=== PATIENT | female | born 1975 | race Caucasian/White ===

== ENCOUNTER 2018-03-06 01:19 | Outpatient (CLI) | payer BC, SELFPAY | END 2018-03-06 01:39 | PROVIDERS: PCP Family Medicine; Visit Provider Family Medicine | DX: R42 Dizziness and giddiness (principal) | CPT/HCPCS: 93225 ==

== ENCOUNTER 2018-03-06 07:06 | Outpatient (CLI) | payer BC, SELFPAY ==
[2018-03-06 07:41] LABS: Absolute Basophil Count 0.03 k/cumm (0.0-0.2); Absolute Eosinophil Count 0.08 k/cumm (0.0-0.7); Absolute Lymphocyte Count 1.97 k/cumm (1.2-3.4); Absolute Monocyte Count 0.43 k/cumm (0.11-0.7); Basophils % 0.6; Eosinophils % 1.6; HCT 42.8 % (36.0-46.0); HGB 14.4 g/dL (12.0-15.5); Lymphocytes % 38.6; Mean Corp. HGB Concentration 33.6 g/dL (32.0-36.0); Mean Corpuscular Hemoglobin 30.4 pg (27.0-33.0); Mean Corpuscular Volume 90.3 fL (80-95); Mean Platelet Volume 10.8 fL (8.0-11.0); Monocytes % 8.4; Neutrophils % 50.8; Platelet Count 243 x1000/uL (130-400); RBC 4.74 m/cumm (4.00-5.20); RBC Distribution Width 12.7 % (11.7-14.6); White Blood Cell Count 5.11 k/cumm (4.4-10.8)
[2018-03-06 07:48] LABS: Hemoglobin A1C 5.4 % (4.5-6.2)
[2018-03-06 08:54] LABS: HCG Qual (Urine) Negative
[2018-03-06 09:13] LABS: ALT 22 U/L (12-78); AST 18 U/L (15-37); Albumin 3.8 g/dL (3.4-5.0); Alkaline Phosphatase 71 U/L (46-116); Anion Gap 7.9 mmol/L (3-11); BUN 11 mg/dL (7-18); Bilirubin, Total 0.7 mg/dL (0.2-1.0); CO2 29.1 mmol/L (21.0-32.0); CREATININE 0.83 mg/dL (0.55-1.02); Calcium 8.7 mg/dL (8.5-10.1); Chloride 105 mmol/L (98-107); Glucose 85 mg/dL (70-100); Potassium 4.1 mmol/L (3.5-5.1); Sodium 142 mmol/L (136-145); TSH 2.81 uIU/mL (0.358-3.74); Total Protein 7.1 g/dL (6.4-8.2)
== END 2018-03-06 07:26 ==
PROVIDERS: PCP Family Medicine; Visit Provider Family Medicine
DX: R42 Dizziness and giddiness (principal); R55 Syncope and collapse; R73.09 Other abnormal glucose
CPT/HCPCS: 36415; 80053; 81025; 83036; 84443; 85025

== ENCOUNTER 2018-03-09 11:54 | Outpatient (CLI) | payer BC, SELFPAY ==
--- NOTE | 2018-03-13 10:34 | W.HOLTRPT ---
Holter Monitor Report Holter Monitor Note: Baseline heart rhythm sinus. Rare single PAC. Single burst SVT, for mean duration at 130 bpm. No atrial fibrillation. Rare single PVC. No VT. No bradycardia. No symptoms. Average heart rate 84 bpm.
== END 2018-03-09 12:14 ==
PROVIDERS: PCP Family Medicine; Visit Provider Family Medicine
DX: R42 Dizziness and giddiness (principal)
CPT/HCPCS: 93226

== ENCOUNTER 2020-01-02 20:33 | Outpatient (REF) | payer BC, SELFPAY ==
[2020-01-04 14:10] LABS: Chlamydia Result Negative (Negative); GC Result Negative (Negative)
== END 2020-01-02 20:53 ==
LOC: LBN 20:33
PROVIDERS: PCP Family Medicine; Visit Provider Nurse Practitioner Women's Health
DX: Z11.3 Encounter for screening for infections with a predominantly sexual mode of transmission (principal)
CPT/HCPCS: 87491; 87591

== ENCOUNTER 2020-02-13 01:42 | Outpatient (CLI) | payer BC, SELFPAY ==
--- NOTE | 2020-02-13 06:30 | DI.MAMMO_ITS ---
EXAM: MAMMO SCREENING CLINICAL HISTORY: screening.Z12.39 TECHNIQUE: Mammograms were interpreted according to the usual protocol including computer analysis w [employer] CAD system, tomosynthesis and C-view imaging. COMPARISON: FINDINGS: The breasts are heterogeneously dense. No dominant mass or clumped microcalcification is identified in either breast. Today's examination is a baseline examination. IMPRESSION: No specific evidence of malignancy at this time. Routine screening examinations are suggested at yea rly intervals in this age group according to the ACR guidelines. BI-RADS Category 1 - Negative Breast Density - Category C - Heterogeneously dense
== END 2020-02-13 02:02 ==
PROVIDERS: PCP Family Medicine; Visit Provider Nurse Practitioner Women's Health
DX: Z12.31 Encounter for screening mammogram for malignant neoplasm of breast (principal); R92.2 Inconclusive mammogram
CPT/HCPCS: 77063; 77067

== ENCOUNTER 2022-03-30 15:23 | Outpatient (REF) | payer BC, SELFPAY ==
--- NOTE | 2022-03-30 14:00 | PAPFT_PTH ---
PATIENT: Bethany Ta LOC: [facility] U#:[id number] AGE/SX: 46/F ROOM: RE03/30/[address]: Michelle Coronado NP : 1975 BED: DIS: 03/30/2022 SPEC #: [id number] RECD: 03/30/22 17:49 STATUS: NISHA GONZALES #: [id number] WARD: 03/30/22 14:[address]: Michelle Coronado NP DEPT: [facility] Cytology RECD BY: Helena Cantu ENTERED: 03/30/22 17:49 SP TYPE: PAPFT OTHR DR: Naima Taylor MD, DC Tissues: 1 - CX/ENDOCX FOR PAP SMEARS Procedures: PAP THIN PREP/[facility] Screening HPV DNA PROBE Comments: [id number]
== END 2022-03-30 15:24 | disposition home or self-care (01) ==
LOC: LBN 15:23
PROVIDERS: PCP Family Medicine; Visit Provider Nurse Practitioner Women's Health
DX: Z12.4 Encounter for screening for malignant neoplasm of cervix (principal); Z11.51 Encounter for screening for human papillomavirus (HPV)
CPT/HCPCS: 88142; 87624

== ENCOUNTER → 2022-04-20 02:00 | Outpatient (CLI) | payer BC, SELFPAY ==
--- NOTE | 2022-04-20 15:45 | DI.MAMMO_ITS ---
Exam(s) MAMMO SCREENING EXAM: MAMMO SCREENING CLINICAL HISTORY: screening TECHNIQUE: Bilateral full field digital CC and MLO mammographic images were obtained with 3D tomosyn thesis and utilizing computer aided detection (CAD). COMPARISON: Available for comparison. FINDINGS: Masses/Architectural Distortion: There is asymmetric breast tissue in the upper left breast on the ML O view. Microcalcifications: No suspicious pleomorphic-type are seen. Skin Thickening/Nipple Retraction: None. IMPRESSION: 1. There is asymmetric breast tissue in the upper left breast on the MLO view. 2. This area should be further evaluated with a spot compression view. Ultrasound may be indicated a t that time. BI-RADS Category 0 - Assessment Incomplete: Need additional imaging evaluation Breast Density - Category B - Scattered areas of fibroglandular density Breast density category C or D implies that the patient has dense breast tissue. Dense breast tissue is very common and is not abnormal but dense breast tissue can make it harder to find cancer on a ma mmogram. Also, dense breast tissue may increase their breast cancer risk. This information about the result of the mammogram report was provided to the patient to raise their awareness. Use this report when you speak with the patient about their risks for breast cancer, which includes their family hist ory. At that time, you may recommend for more screening tests (Ultrasound or MRI) as they might be us eful based on their risk. A negative radiographic report should not delay biopsy if a dominant or clinically suspicious mass is present. Up to ten percent of cancers are not identified on mammography. A negative report may reinforce clinical impression. Adenosis and dense breasts may obscure an underlying neoplasm. False positive reports average 6 to 10%. Patient will receive a letter notifying them of these results.
== END ==
PROVIDERS: PCP Family Medicine; Visit Provider Nurse Practitioner Women's Health
DX: Z12.31 Encounter for screening mammogram for malignant neoplasm of breast (principal); R92.8 Other abnormal and inconclusive findings on diagnostic imaging of breast
CPT/HCPCS: 77063; 77067

== ENCOUNTER → 2022-04-30 00:48 | Outpatient (CLI) | payer BC, SELFPAY ==
--- OUTSIDE RECORDS SUMMARY | 2022-04-30 00:49 | XMS_ITS | Encounter Summary ---
:1975 Author Organization [facility] Address [address] [place] [address] Care Team Providers Name Role Phone Darrius Apodaca MD Primary Care Provider Encounter Details Date Type Department Care Team Description 11/20/2013 Results Only [facility] Tiffany Coto MD Laboratory Services - [address] [place] [address] [place] [address] [place] [address] [phone] Social History Tobacco Use Types Packs/Day Years Used Date Smoking Tobacco: Never Alcohol Use Standard Drinks/Week Comments Not Asked 0 (1 standard drink = 0.6 oz pure alcoho l) Sex Assigned at Date Recorded Not on file documented as of this encounter Plan of Treatment Not on filedocumented as of this encounter Procedures Procedure Name Priority Date/Time Associated Diagnosis Comme nts PAP TEST- RESULT Routine 11/20/2013 0:00 EDT Resu lts for this ONLY procedure are i n the results section. documented in this encounter Results PAP TEST- RESULT ONLY (11/20/2013 0:00 EDT) Component Value Ref Test Analysis Performed At [facility] Method Time Signature Pathology CYTOPATHOLOGY REPORT [facility] Report: [facility] Reports generated via electronic interface contain original data; however they are lacking the format of the original report. Caution should be taken when reading/interpreting unformatte d reports. Name: ? EMORY IGNACIO ? Accession #: ? [id number] ? : ? 1975 (Age: 38) ??F ?Collect Da te: ? 11/20/2013 ? Location: ? [facility] ? Receive Date: ? 11/21/2013 ? Provider: TIFFANY COTO MD Copy to: ? Final Report SPECIMEN ADEQUACY ? Satisfactory for Evaluation - transformation zone component absent GENERAL CATEGORIZATION ? Negative for Intraepithelial Lesion or Malignancy ?? Last Menstrual Period: 10/28/13 Specimen/Source: ??Pap Test, Cervix/Endocervix, ThinPr ep Imaging System with manual evaluation Document reviewed and electronically signed by: ? Jennifer Kaye, CT(ASCP) ? Report ??Date: 12/03/2013 12:49 HPV with Pap Test ? Date Ordered: ? 12/03/2013 ? Status: ?? Agnieszka d Out ?Date Complete: ? 12/05/2013 ? By: ??System Interface ? Date Reported: ? 12/05/2013 ? Interpretation RESULT: Negative for HPV. No E6 or E7 mRNA is detected from HPV types 16,18,31,33,35, 39,45,51,52,56,58,59,66, and 68 by bend sorter mediated amplification. Comments Document reviewed and electronically signed by: ? System Interface ? Report date: 12/05/2013 By the signature above, the attending physician certifies th at he/she has personally conducted a gross and/or microscopic examin ation of the described specimens and rendered or confirmed the above diagnosis. End of Report Specimen (Source) Anatomical Location Collection Method / Collectio n Time Received Time / Laterality Volume 11/20/2013 11/21/2013 Tiffany Coto MD PATHOLOGY ORDERABLES Performing Organization Address City/State/ZIP Code Phon e Number [facility] [address] [place] [address] SERVICES [facility] [address] [place] [address] documented in this encounter Visit Diagnoses Not on filedocumented in this encounter Care Teams Entertainment & Media Correspondent Relationship Specialty Start Date End Date Darrius Apodaca MD PCP - General 10/06/09 10/18/17 1 [facility] [address] [place] [phone] documented as of this encounter
--- OUTSIDE RECORDS SUMMARY | 2022-04-30 00:49 | XMS_ITS | Encounter Summary ---
:1975 Author Organization [facility] Address [address] [place] [address] Care Team Providers Name Role Phone Darrius Apodaca MD Primary Care Provider Unknown, Provider Primary Care Provider Encounter Details Date Type Department Care Team Description 06/08/2006 Hospital Encounter [facility] - S Josef Wan MD [address] [place] [phone] (Wo rk) Social History Tobacco Use Types Packs/Day Years Used Date Smoking Tobacco: Never Alcohol Use Standard Drinks/Week Comments Not Asked 0 (1 standard drink = 0.6 oz pure alcoho l) Sex Assigned at Date Recorded Not on file documented as of this encounter Plan of Treatment Not on filedocumented as of this encounter Visit Diagnoses Not on filedocumented in this encounter Care Teams Student Life Advisor Relationship Specialty Start Date End Date Darrius Apodaca MD PCP - General 10/06/09 10/18/17 1 [facility] [address] [place] [address] Unknown, MD Katt PCP - General 10/19/17 documented as of this encounter
--- OUTSIDE RECORDS SUMMARY | 2022-04-30 00:49 | XMS_ITS | Encounter Summary ---
:1975 Author Organization [facility] Address [address] [place] [address] Care Team Providers Name Role Phone Darrius Apodaca MD Primary Care Provider Unknown, Provider Primary Care Provider Encounter Details Date Type Department Care Team Description 05/19/2006 Hospital Encounter [facility] - Josseline Hutton MD 1 [facility] [address] [place] [address] [place] [address] [phone] Social History Tobacco Use Types Packs/Day Years Used Date Smoking Tobacco: Never Alcohol Use Standard Drinks/Week Comments Not Asked 0 (1 standard drink = 0.6 oz pure alcoho l) Sex Assigned at Date Recorded Not on file documented as of this encounter Plan of Treatment Not on filedocumented as of this encounter Visit Diagnoses Not on filedocumented in this encounter Care Teams Coin Teller Relationship Specialty Start Date End Date Darrius Apodaca MD PCP - General 10/06/09 10/18/17 1 [facility] [address] [place] [address] Slime, MD Katt PCP - General 10/19/17 documented as of this encounter
--- OUTSIDE RECORDS SUMMARY | 2022-04-30 00:49 | XMS_ITS | Encounter Summary ---
:[address] [facility] Address [address] [place] [address] Care Team Providers Name Role Phone Unknown, Provider Primary Care Provider Encounter Details Date Type Department Care Team Description 11/21/2017 Hospital Encounter [facility]- Jimena Unknown, Provider, [facility] [address] [facility] [phone] [place] [address] (Work) [phone] Social History Tobacco Use Types Packs/Day Years Used Date Smoking Tobacco: Never Alcohol Use Standard Drinks/Week Comments Not Asked 0 (1 standard drink = 0.6 oz pure alcoho l) Sex Assigned at Date Recorded Not on file documented as of this encounter Medications at Time of Discharge Medication Sig Dispensed Refills Start Date End Date norgestimate-ethinyl Take 1 Tab by mouth 0 estradiol (ORTHO daily. TRI-CYCLEN LO) .18/.215/.25-25 mg-mcg tablet documented as of this encounter Discharge Disposition Disposition Code Departure Means Destination Home or Self Snf documented in this encounter Plan of Treatment Not on filedocumented as of this encounter Visit Diagnoses Not on filedocumented in this encounter Care Teams Electrical Controls Designer Relationship Specialty Start Date End Date Unknown, Provider, PCP - General 10/19/17 documented as of this encounter
--- OUTSIDE RECORDS SUMMARY | 2022-04-30 00:49 | XMS_ITS | Encounter Summary ---
:1975 Author Organization [facility] Address [address] [place] [address] Care Team Providers Name Role Phone Darrius Apodaca MD Primary Care Provider Reason for Visit Reason Comments Hand Pain right, middle finger Encounter Details Date Type Department Care Team Description 07/13/2012 Office Visit [facility] Maude Canales (Primary Adult Primary Care - JIMMY Jeff Dx) [address] [address] [place] [phone] (Wo rk) Social History Tobacco Use Types Packs/Day Years Used Date Smoking Tobacco: Never Alcohol Use Standard Drinks/Week Comments Not Asked 0 (1 standard drink = 0.6 oz pure alcoho l) Sex Assigned at Date Recorded Not on file documented as of this encounter Last Filed Vital Signs Vital Sign Reading Time Taken Comments Blood Pressure 106/70 07/13/2012 1250 EST Pulse 72 07/13/2012 1250 EST Temperature 36.3 ??C (97.3 ??F) 07/13/2012 1250 EST Respiratory Rate 16 07/13/2012 1250 EST Oxygen Saturation - - Inhaled Oxygen Concentration - - Weight 70.8 kg (156 lb) 07/13/2012 1250 EST Height - - Body Mass Index - - documented in this encounter Ordered Prescriptions Prescription Sig Dispensed Refills Start Date End Date cephALEXin (KEFLEX) 500 mg Take 1 Cap by mouth 15 Cap 0 07/13/2012 07/18/2012 capsule 3 times daily for 5 days. documented in this encounter Progress Notes Maude Canales NP - 07/13/2012 1319 EST PROBLEM: Finger infection. Bethany is a 36-year-old woman who presents today for above. Reports that a few days ago she was trimming her nails and slept with her cayla, cutting the edge of her finger. Since then, the area has become more red and swollen; the tip of her finger is red and swollen, feels tight when she bends it.She has been soaking it in hydrogen peroxide and covering the a Band-Aid and Neosporin. This morningthere is a fair amount of purulent-drainage material expressed. She has not felt feverish or achy, but thought she had best have it checked. Her chart notes are reviewed and updated. On exam of her right hand, the middle digit of her right hand along the medial edge, there is erythema, wrapping around the base of the nail bed and the up the lateral side as well, and is grossly swollen; does not extend beyond the DIP, mildly uncomfortable to touch. ASSESSMENT: Paronychia PLAN: Continue soaks, I would switch to just having her do warm soapy water, watch for worsening signs and symptoms of infections. I have ordered for Bethany to begin cephalexin 500 mg t.i.d. for 5 days. Will follow up if any worsening symptoms or questions or concerns. documented in this encounter Plan of Treatment Not on filedocumented as of this encounter Visit Diagnoses Diagnosis Paronychia - Primary Cellulitis and abscess of unspecified di git documented in this encounter Care Teams Party Plan Demonstrator Relationship Specialty Start Date End Date Darrius Apodaca MD PCP - General 10/06/09 10/18/17 1 [facility] [address] [place] [address] documented as of this encounter
--- OUTSIDE RECORDS SUMMARY | 2022-04-30 00:49 | XMS_ITS | Clinical Summary ---
:1975 Author Organization [facility] Address [address] [place] [address] Care Team Providers Name Role Phone Unknown, Provider Primary Care Provider Allergies No known active allergies Medications Medication Sig Dispensed Refills Start Date End Date Status norgestimate-ethinyl Take 1 Tab by 0 Active estradiol (ORTHO mouth daily. TRI-CYCLEN LO) .18/.215/.25-25 mg-mcg tablet Active Problems Problem Noted Date Contraception 10/06/2009 Urinary tract infection 05/30/2006 Plantar wart 02/07/2005 Overview: Sks s/p ? X 2, back 05/04.( Please verify) Encounters Date Type Specialty Care Team Description 03/31/2022 Lab Requisition Clinical Laboratory Michelle Coronado ncounter for other A, INDUSTRIAL SERVICE TECHNICIAN general examina tion from Last 3 Months Immunizations Name Administration Dates Next Due Tetanus Vaccine IM, Historical 07/28/2002 Family History Medical History Relation Comments *Other(comment) Other colon neoplasm. Breast Cancer Other Coronary Artery Disease Other Premature CAD Diabetes Other Relation Status Comments Other Social History Tobacco Use Types Packs/Day Years Used Date Smoking Tobacco: Never Alcohol Use Standard Drinks/Week Comments Not Asked 0 (1 standard drink = 0.6 oz pure alcoho l) Sex Assigned at Date Recorded Not on file Obstetrics History Last Filed Vital Signs Vital Sign Reading Time Taken Comments Blood Pressure 106/70 07/13/2012 1250 EST Pulse 72 07/13/2012 1250 EST Temperature 36.3 ??C (97.3 ??F) 07/13/2012 1250 EST Respiratory Rate 16 07/13/2012 1250 EST Oxygen Saturation - - Inhaled Oxygen Concentration - - Weight 70.8 kg (156 lb) 07/13/2012 1250 EST Height - - Body Mass Index - - Plan of Treatment Health Maintenance Due Date Last Done Comments Hepatitis C Screen 1975 COVID-19 Vaccine (#1) 01/13/1978 Procedures Procedure Name Priority Date/Time Associated Comments Diagnosis PAP TEST Today 03/30/2022 14:00 Encounter for other Resu lts for this EDT general examination procedur e are in the results section. HUMAN PAPILLOMAVIRUS Today 03/30/2022 14:00 Encounter for ot her Results for this (HPV) DETECTION-HIGH EDT general examination procedure are in RISK TYPES the results section. from Last 3 Months Results PAP TEST (03/30/2022 14:00 EDT) Component Value Ref Test Analysis Performed At [facility] Range Method Time Signature Specimens A. Cervix and/or 04/14/2022 [facility] MEDICAL Endocervix , 14:59 [facility] ThinPrep Imaging LABORATORY System with SERVICES Manual Evaluation Specimen Satisfactory for 04/14/2022 [facility] MEDICAL Adequacy Evaluation - 14:59 [facility] transformation LABORATORY zone component SERVICES present General Negative for 04/14/2022 [facility] MEDICAL Categorization intraepithelial 14:59 [facility] lesion or LABORATORY malignancy SERVICES Attestation . 04/14/2022 [facility] MEDICAL Elect ronically 14:59 [facility] signed by CJ Estrada, TANO Alvarez(ASCP) o n 04/14/2022 at 1459 Clinical History See below 04/14/2022 [facility] MEDICAL 14:59 [facility] LABORATORY SERVICES HPV The result for the Human Pap illomavirus (HPV) Detection-High Risk Types is Negative. No E6 or E7 mRNA is detected from HPV types 16,18,31,33,35,39,45,51,52,56,58,59,66, and 68 by candles pourer mediated 04/14/2022 [facility] MEDICAL amplification.Testing was pe rformed on specimen [id number] and was resulted on 04/14/2022 1422 EST by KELSIE, LAB INSTRUMENT RESULTS IN 14:59 [facility] LABORATORY SERVICES Performing Lab [facility] 04/14/2022 [facility] MEDIC AL LAB 14:59 [facility] LABORATORY SERVICES Scanned Images 04/14/2022 [facility] MEDICAL 14:59 [facility] LABORATORY SERVICES Specimen Anatomical Collection Method Collection Time Receive d Time (Source) Location / / Volume Laterality Pap Test (Cervix 03/30/2022 14:00 022 9:52 and/or EDT EDT Endocervix) Michelle Coronado APRN PATHOLOGY ORDERABLES Performing Organization Address City/State/ZIP Code Phon e Number [facility] [address] [place] [address] SERVICES HUMAN PAPILLOMAVIRUS (HPV) DETECTION-HIGH RISK TYPES (03/30/2022 14:00 EDT) [facility] Method Time Signature Human Negative Negative 04/14/2022 [facility] MEDICAL Papillomavirus 14:59 EST CENTER (HPV) LABORATORY Detection-High SERVICES Types Comment: No E6 or E7 mRNA is detected fr HPV types 16,18,31,33,35,39,45,51,52,56,58,59,66, and 68 by candles pourer mediated amplification. Specimen Anatomical Collection Method Collection Time Receive d Time (Source) Location / / Volume Laterality Pap Test (Cervix 03/30/2022 14:00 022 and/or EDT 15:24 EST Endocervix) Micehlle Coronado APRN MICROBIOLOGY - GENERAL ORDER KATHARINE Performing Organization Address City/State/ZIP Code Phon e Number [facility] [address] [place] [address] SERVICES from Last 3 Months Care Teams Elevator Troubleshooter Relationship Specialty Start Date End Date Unknown, Provider, PCP - General 10/19/17
--- OUTSIDE RECORDS SUMMARY | 2022-04-30 00:49 | XMS_ITS | Encounter Summary ---
:1975 Author Organization [facility] Address [address] [place] [address] Care Team Providers Name Role Phone Unavailable Primary Care Provider Unavailable Encounter Details Date Type Department Care Team Description 08/10/2007 Hospital Encounter [facility] - Sara Duran NP Other [address] [place] [address] [place] [address] [phone] Social History Tobacco Use Types Packs/Day Years Used Date Smoking Tobacco: Never Assessed Sex Assigned at Date Recorded Not on file documented as of this encounter Discharge Disposition Disposition Code Departure Means Destination Home or Self Care documented in this encounter Plan of Treatment Not on filedocumented as of this encounter Procedures Procedure Name Priority Date/Time Associated Diagnosis Comme nts CYTOPATHOLOGY Routine 08/15/2008 0:00 EDT Results for this procedure are i n the results section . documented in this encounter Results CYTOPATHOLOGY (08/15/2008 0:00 EDT) Component Value Ref Test Analysis Performed At [facility] Pathology CYTOPATHOLOGY REPORT ? TAY Report: ? [facility] Reports generated via electr onic interface contain original data; ? however they are lacking the format of the original report. ? Caution should be taken when reading/interpreting unformatted reports. ? Name: ? LUIS, JASMYN Godoy ? Accession #: ? [id number] ? : ? 1975 (Age: 33) ??F ?Collect Date: ? 08/15/2008 ? Location: ? [facility] ? Receive Date: ? 08/16/2008 ? Provider: ?SARA SC HARF DROP CLIPPER ? Copy to: ? Specimen/Source: ? Pap Test, Cervix/Endocervix, ThinPrep Imaging System ? with manual evaluation ? Last Menstrual Period: ? 3/9/09 ? Hormonal/Contraceptive Statu s: ? Yes: erin ? Treatment History: ? Cryotherapy: 2001 ? Other: ? HPVA - HPV testing requested if ASC-US on the current ThinPrep Pap test. ? SPECIMEN ADEQUACY ? Satisfactory for Eval uation ? - transformation zone compon ent present ? GENERAL CATEGORIZATION ? Negative for Intraepi thelial Lesion or Malignancy ? Document reviewed and electr onically signed by: ? Mike Coronado, CT (ASCP) ? Report Date: ??03/24/ 2009 12:52 ? End of Report ? Specimen (Source) Anatomical Location Collection Method / Collectio n Time Received Time / Laterality Volume 08/15/2008 08/16/2008 Sara Duran DROP CLIPPER PATHOLOGY ORDERABLES Performing Organization Address City/State/ZIP Code Phon e Number [facility] [address] [place] [address] SERVICES [facility] [address] [place] [address] documented in this encounter Visit Diagnoses Not on filedocumented in this encounter
--- OUTSIDE RECORDS SUMMARY | 2022-04-30 00:49 | XMS_ITS | Encounter Summary ---
:1975 Author Organization [facility] Address [address] [place] [address] Care Team Providers Name Role Phone Unknown, Provider Primary Care Provider Encounter Details Date Type Department Care Team Description 01/03/2020 Lab Requisition [facility] Outr Resulting Lab, Pathology & Laboratory Provider [facility] [address] [place] [address] Social History Tobacco Use Types Packs/Day Years Used Date Smoking Tobacco: Never Alcohol Use Standard Drinks/Week Comments Not Asked 0 (1 standard drink = 0.6 oz pure alcoho l) Sex Assigned at Date Recorded Not on file documented as of this encounter Plan of Treatment Not on filedocumented as of this encounter Procedures Procedure Name Priority Date/Time Associated Comments Diagnosis CHLAMYDIA/N. Routine 01/02/2020 10:00 Results for this GONORRHOEAE AMPLIFIED EDT proced ure are in RNA the results section. documented in this encounter Results CHLAMYDIA/N. GONORRHOEAE AMPLIFIED RNA (01/02/2020 10:00 EDT) [facility] Method Time Signature Gonococcus Negative Negative 01/04/2020 [facility] Result 14:05 EDT [facility] LAB[facility]ATORY SERVICES Chlamydia Negative Negative 01/04/2020 [facility] Result 14:05 EDT [facility] LAB[facility] SERVICES Specimen Anatomical Collection Method Collection Time Receive d Time (Source) Location / / Volume Laterality Swab ENTIRE WALL OF 01/02/2020 10:00 0 [facility] / Unknown EDT 17:21 EDT Provider Outr Resulting Lab MICROBIOLOGY - GENERAL ORD ERABLES Performing Organization Address City/State/ZIP Code Phon e Number [facility] [address] [place] [address] SERVICES documented in this encounter Visit Diagnoses Not on filedocumented in this encounter Care Teams Varnish Filterer Relationship Specialty Start Date End Date Unknown, Provider, PCP - General 10/19/17 documented as of this encounter
--- OUTSIDE RECORDS SUMMARY | 2022-04-30 00:49 | XMS_ITS | Encounter Summary ---
:1975 Author Organization [facility] Address [address] [place] [address] Care Team Providers Name Role Phone Elaine Apodaca MD Primary Care Provider Encounter Details Date Type Department Care Team Description 07/26/2006 Results Only [facility] - Marce Maynard NP Maple conversion [address] [place] [address] [place] [address] [phone] Social History Tobacco Use Types Packs/Day Years Used Date Smoking Tobacco: Never Assessed Sex Assigned at Date Recorded Not on file documented as of this encounter Plan of Treatment Not on filedocumented as of this encounter Procedures Procedure Name Priority Date/Time Associated Diagnosis Comme [facility] CYTOPATHOLOGY Routine 07/26/2006 0:00 EST Results for this procedure are i n the results section . documented in this encounter Results CYTOPATHOLOGY (07/26/2006 0:00 EST) Component Value Ref Test Analysis Performed At [facility] Pathology CYTOPATHOLOGY REPORT [facility] Report: [facility] Reports generated via electronic interface contain original data; however they are lacking the format of the original report. Caution should be taken when reading/interpreting unformatte d reports. Name: ? JASMYN SMITH ? Accession #: ? [id number] : ? 1975 (Age: 31) ??F ?Collect Date: ? 07/26/2006 Location: ? [facility] ? Receive Date: ? 07/27/2006 Provider: ?SARA MAYNARD NP Copy to: ?ELAINE APODACA MD ? Specimen/Source: ? ThinPrep Pap Test, Cervix/Endocervix, processed on [employer] ThinPrep Imaging System, with manual evaluation Last Menstrual Period: ? 07/10/06 Hormonal/Contraceptive Status: ? Orthotricyclen: Lo Treatment History: ? Cryotherapy: 2000 ? SPECIMEN ADEQUACY ? Satisfactory for Evaluation - transformation zone component absent GENERAL CATEGORIZATION ? Negative for Intraepithelial Lesion or Malignancy ? Document reviewed and electronically signed by: ? Carmen Ortiz, SCT(ASCP) ? Report Date: ??07/28/2006 15:09 End of Report Specimen (Source) Anatomical Location Collection Method / Collectio n Time Received Time / Laterality Volume 07/26/2006 07/27/2006 Sara Maynard NP PATHOLOGY ORDERABLES Performing Organization Address City/State/ZIP Code Phon e Number [facility] [address] [place] [address] SERVICES [facility] [address] [place] [address] documented in this encounter Visit Diagnoses Not on filedocumented in this encounter Care Teams Bat Carrier Relationship Specialty Start Date End Date Elaine Apodaca MD PCP - General 10/06/09 10/18/17 1 [facility] Level [address] [place] [phone] documented as of this encounter
--- OUTSIDE RECORDS SUMMARY | 2022-04-30 00:49 | XMS_ITS | Encounter Summary ---
:1975 Author Organization [facility] Address [address] [place] [address] Care Team Providers Name Role Phone Unavailable Primary Care Provider Unavailable Encounter Details Date Type Department Care Team Description 06/24/2009 Abstract Used for ABSTRACTING Unknown, Doctor MD Tank abreu; Data UTI (urinary tract infection ) [phone] Social History Tobacco Use Types Packs/Day Years Used Date Smoking Tobacco: Never Assessed Sex Assigned at Date Recorded Not on file documented as of this encounter Plan of Treatment Not on filedocumented as of this encounter Visit Diagnoses Diagnosis Plantar wart UTI (urinary tract infection) Urinary tract infection, site not specif ied documented in this encounter
--- OUTSIDE RECORDS SUMMARY | 2022-04-30 00:49 | XMS_ITS | Encounter Summary ---
:1975 Author Organization [facility] Address [address] [place] [address] Care Team Providers Name Role Phone Darrius Apodaca MD Primary Care Provider Encounter Details Date Type Department Care Team Description 10/04/2017 Results Only [facility] Naima Gaston MD [phone] [place] [address] (Wo rk) Social History Tobacco Use Types [...] Diagnosis Comme nts PAP TEST- RESULT Routine 10/04/2017 0:00 EDT Resu lts for this ONLY procedure are i n the results section. documented in this encounter Results PAP TEST- RESULT ONLY (10/04/2017 0:00 EDT) Component Value Ref Test Analysis Performed At [facility] Range Method Time Signature Pathology CYTOPATHOLOGY REPORT [facility] MEDIC AL Report: CENTER Reports generated via electronic interface contain origina l data; LABORATORY however they are lacking the format of the original report. SERVICES Caution should be taken when reading/interpreting unformatte d reports. Name: ? EMORY IGNACIO ? Accession #: ? [id number] ? : ? 1975 (Age: 6 0) ??F ?Collect Date: ? 2017 ? Location: ? [facility] ? Receive Date: ? 10/05/2017 ? Provider: NAIMA GASTON MD Copy to: ? Final Report SPECIMEN ADEQUACY ? Satisfactory for Evaluation - transformation zone component absent GENERAL CATEGORIZATION ? Negative for Intraepithelial Lesion or Malignancy ?? Hormonal/Contraceptive status: Intrauterine device: X 3 yrs Treatment History: Cryotherapy: >16 yrs ago Infection History: Pos for HPV Specimen/Source: ??Pap Test, Cervix, ThinPrep Imaging System with manual evaluation Document reviewed and electronically signed by: ? TANO Burgess(ASCP) ? Report ??Date: 10/12/2017 09:45 HPV with Pap Test ? Date Ordered: ? 10/12/2017 ? Status: ?? Signed Out ?Date Complete: ? 10/13/2017 ? By: ??System I nterface ? Date Reported: ? 10/13/2017 ? Interpretation RESULT: Negative for HPV. No E6 or E7 mRNA is detected from HPV types 16,18,31,33,35, 39,45,51,52,56,58,59,66, and 68 by retail loan originator assistant mediated amplification. Comments Document reviewed and electronically signed by: ? System Interface ? Report date: 10/13/2017 By the signature above, the attending physician certifies th at he/she has personally conducted a gross and/or microscopic examin ation of the described specimens and rendered or confirmed the above diagnosis. End of Report Specimen (Source) Anatomical Location Collection Method / Collectio n Time Received Time / Laterality Volume 10/04/2017 10/05/2017 Naima Gaston MD PATHOLOGY ORDERABLES Performing Organization Address City/State/ZIP Code Phon e Number [facility] [address] [place] [address] SERVICES documented in this encounter Visit Diagnoses Not on filedocumented in this encounter Care Teams Chef French Relationship Specialty Start Date End Date Darrius Apodaca MD PCP - General 10/06/09 10/18/17 1 [facility] [address] [place] [address] documented as of this encounter
--- OUTSIDE RECORDS SUMMARY | 2022-04-30 00:49 | XMS_ITS | Encounter Summary ---
:1975 Author Organization [facility] Address [address] [place] [address] Care Team Providers Name Role Phone Unknown, Provider Primary Care Provider Encounter Details Date Type Department Care Team Description 11/21/2017 Results Only [facility]- Naima Gutierrez MD [phone] [place] [address] (Wo rk) Social History Tobacco [...] Procedure Name Priority Date/Time Associated Diagnosis Comme [facility] SURGICAL PATHOLOGY Routine 11/21/2017 16:06 Resul ts for this EDT procedure are i n the results section. documented in this encounter Results SURGICAL PATHOLOGY (11/21/2017 16:06 EDT) Component Value Ref Test Analysis Performed At [facility] Method Time Signature Pathology SURGICAL PATHOLOGY REPORT [facility] MEDICAL Report: Reports generated via electronic interface contain origina l data; CENTER however they are lacking the format of the original report. LABORATORY Caution should be taken when reading/interpreting unformat bryan reports. SERVICES Name: ? EMORY IGNACIO ? Accession #: ? [id number] ? : ? 1975 (Age: 6 0) ??F ? Collect Date: ? 11/21/2017 ? Location: ? [facility] ? Receive Date: ? 11/21/2017 ? Provider: NAIMA TAYLOR MD Copy to: ? Final Pathologic Diagnosis: SKIN OF THIGH, RIGHT INNER, SHAVE BIOPSY: - Acrochordon. Document reviewed and electronically signed by: ROGERS AHUMADA MD Report ??Date: 11/23/2017 11:22 By the signature above, the attending physician certifies th at he/she has personally conducted a gross and/or microscopic examin ation of the described specimens and rendered or confirmed the above diagnosis. Specimen(s) Received: R inner thigh large skin tag Clinical History: R inner thigh skin tag x3 years Gross Description: ? Received in formalin labelled with proper patient identification (initials C, M) and Rt inner thigh is a shave biopsy of a hernandez-pink f leshy soft, pedunculated papule (0.7 x 0.6 x 0.4 cm) . The specimen is inked, bisected, and submitted in 1. EVELIA Watson ([facility]) 11/21/2017 4:39 PM End of Report Specimen Anatomical Collection Method Collection Time Receive d Time (Source) Location / / Volume Laterality 11/21/2017 16:06 11/21/2017 EDT 16:06 EDT Naima Taylor MD PATHOLOGY ORDERABLES Performing Organization Address City/State/ZIP Code Phon e Number [facility] [address] [place] [address] SERVICES documented in this encounter Visit Diagnoses Not on filedocumented in this encounter Care Teams Ditcher Relationship Specialty Start Date End Date Unknown, Provider, PCP - General 10/19/17 documented as of this encounter
--- OUTSIDE RECORDS SUMMARY | 2022-04-30 00:49 | XMS_ITS | Encounter Summary ---
:1975 Author Organization [facility] Address [address] [place] [address] Care Team Providers Name Role Phone Elaine Apodaca MD Primary Care Provider Encounter Details Date Type Department Care Team Description 08/10/2007 Results Only [facility] - Marce Maynard NP Maple conversion [address] [place] [address] [place], [place] [address] [phone] Social History Tobacco Use Types Packs/Day Years Used Date Smoking Tobacco: Never Assessed Sex Assigned at Date Recorded Not on file documented as of this encounter Plan of Treatment Not on filedocumented as of this encounter Procedures Procedure Name Priority Date/Time Associated Comments Diagnosis CHLAMYDIA/GC AMPLIFIED Routine 08/10/2007 11:11 R esults for this PROBE EDT procedure are i n the results section. CYTOPATHOLOGY Routine 08/10/2007 0:00 Results for this EDT procedure are i n the results section. documented in this encounter Results CHLAMYDIA/GC AMPLIFIED PROBE (08/10/2007 11:11 EDT) Component Value Ref Test Analysis Performed At [facility] Range Method Time Signature Specimen Cervix TAY Description [facility] Result No Chlamydia trachomatis or Neisseria gonorrhoeae DNA detected by employment law specialist mediated TAY amplification. [facility] Report Status Final [facility] [id number] [facility] Specimen Anatomical Collection Method Collection Time Receive d Time (Source) Location / / Volume Laterality 08/10/2007 11:11 08/11/2007 EDT 11:11 EDT Sara Maynard NP MICROBIOLOGY - GENERAL ORDER KATHARINE Performing Organization Address City/State/ZIP Code Phon e Number [facility] [address] [place] [address] SERVICES [facility] [address] [place] [address] CYTOPATHOLOGY (08/10/2007 0:00 EDT) Component Value Ref Test Analysis Performed At [facility] Range Method Time Signature Pathology CYTOPATHOLOGY REPORT [facility] Report: [facility] Reports generated via electronic interface contain original data; however they are lacking the format of the original report. Caution should be taken when reading/interpreting unformatte d reports. Name: ? JASMYN SMITH ? Accession #: ? [id number] : ? 1975 (Age: 32) ??F ?Collect Date: ? 08/10/2007 Location: ? [facility] ? Receive Date: ? 08/11/2007 Provider: ?SARA MAYNARD WHEEL MILL OPERATOR Copy to: ?ELAINE APODACA MD ? Specimen/Source: ? ThinPrep Pap Test, Cervix/Endocervix, processed on [employer] ThinPrep Imaging System, with manual evaluation Last Menstrual Period: ? 08/05/07 Hormonal/Contraceptive Status: ? Orthotricyclen: Lo Treatment History: ? Cryotherapy: 2001 Other: ? HPVA - HPV testing requested if ASC-US on the current ThinPr ep Pap test. ? SPECIMEN ADEQUACY ? Satisfactory for Evaluation - transformation zone component present GENERAL CATEGORIZATION ? Negative for Intraepithelial Lesion or Malignancy INTERPRETATION ? Shift in juanito present suggestive of bacterial vagino sis. ? Document reviewed and electronically signed by: ? TANO Burgess(ASCP) ? Report Date: ??08/16/2007 17:19 End of Report Specimen (Source) Anatomical Location Collection Method / Collectio n Time Received Time / Laterality Volume 08/10/2007 08/11/2007 Sara Maynard WHEEL MILL OPERATOR PATHOLOGY ORDERABLES Performing Organization Address City/State/ZIP Code Phon e Number [facility] [address] [place] [address] SERVICES [facility] [address] [place] [address] documented in this encounter Visit Diagnoses Not on filedocumented in this encounter Care Teams Demand Planner Relationship Specialty Start Date End Date Elaine Apodaca MD PCP - General 10/06/09 10/18/17 1 [facility] Level [address] [place] [address] documented as of this encounter
--- OUTSIDE RECORDS SUMMARY | 2022-04-30 00:49 | XMS_ITS | Encounter Summary ---
:1975 Author Organization [facility] Address [address] [place] [address] Care Team Providers Name Role Phone Unavailable Primary Care Provider Unavailable Encounter Details Date Type Department Care Team Description 08/15/2008 Hospital Encounter [facility] - Corazon Duran NP Other [address] [facility] [address] [place], [place] [address] [place] [id number] [phone] Social History Tobacco Use Types Packs/Day Years [...]
--- OUTSIDE RECORDS SUMMARY | 2022-04-30 00:50 | XMS_ITS | Encounter Summary ---
:1975 Author Organization [facility] Address [address] [place] [address] Care Team Providers Name Role Phone Darrius Apodaca MD Primary Care Provider Unknown, Provider Primary Care Provider Encounter Details Date Type Department Care Team Description 04/20/1999 Hospital [facility] [address] [place] [address] [facility] [address] [place] [phone] (Wo rk) Social History Tobacco Use Types Packs/Day Years Used Date Smoking Tobacco: Never Alcohol Use Standard Drinks/Week Comments Not Asked 0 (1 standard drink = 0.6 oz pure alcoho l) Sex Assigned at Date Recorded Not on file documented as of this encounter Plan of Treatment Not on filedocumented as of this encounter Procedures Procedure Name Priority Date/Time Associated Comments Diagnosis COMPLETE BLOOD COUNT Routine 04/20/1999 10:38 Res ults for this EST procedure are i n the results section. QUANT BETA HCG, Routine 04/20/1999 10:38 Results for this EST procedure are i n the results section. TRIGLYCERIDE Routine 04/20/1999 10:38 Results for this EST procedure are i n the results section. ALT Routine 04/20/1999 10:38 Results for this EST procedure are i n the results section. CHOLESTEROL Routine 04/20/1999 10:38 Results for this EST procedure are i n the results section. COMPREHENSIVE Routine 04/20/1999 10:38 Results fo r this METABOLIC PANEL (CMP) EST proced ure are in the results section. documented in this encounter Results TRIGLYCERIDE (04/20/1999 10:38 EST) athologist [facility] Triglycerides 146 35 - 160 [facility] mg/dl LAB Specimen Anatomical Collection Method Collection Time Receive d Time (Source) Location / / Volume Laterality 04/20/1999 10:38 04/20/1999 EST 10:55 EST Skyla Armendariz ANP CHEMISTRY & BLOOD GAS ORDERA BLES Performing Organization Address City/State/ZIP Code Phon e Number [facility] [address] [place] [address] SERVICES [facility] [address] [place] [address] HCG (04/20/1999 10:38 EST) athologist [facility] HCG <4 mIU/ml [facility] Comment: <4 = Negative 4-10 = Borderline, recommend repeat. Specimen Anatomical Collection Method Collection Time Receive d Time (Source) Location / / Volume Laterality 04/20/1999 10:38 04/20/1999 EST 10:55 EST Skyla Armendariz ANP CHEMISTRY & BLOOD GAS ORDERA BLES Performing Organization Address City/State/ZIP Code Phon e Number [facility] [address] [place] [address] SERVICES [facility] [address] [place] [address] COMPREHENSIVE METABOLIC PANEL (04/20/1999 10:38 EST) athologist [facility] Potassium 4.1 3.5 - 5.0 [facility] mEq/L LAB Sodium 140 136 - 145 [facility] mEq/L LAB Chloride 103 96 - 110 [facility] mEq/L LAB CO2 27 24 - 30 [facility] mEq/L LAB Total Alkaline 57 38 - 126 [facility] Phosphatase U/L LAB Bilirubin, Total 0.7 0.2 - 1.3 [facility] N mg/dl LAB AST 24 8 - 50 U/L [facility] Albumin 4.1 3.0 - 5.5 [facility] g/dl LAB Total Protein 7.1 6.0 - 8.5 [facility] g/dl LAB Creatinine 0.9 0.7 - 1.5 [facility] mg/dl LAB BUN 13 10 - 26 [facility] mg/dl LAB Calcium 9.5 8.5 - 10.5 [facility] mg/dl LAB Calculated 9.8 8.5 - 10.5 [facility] Calcium mg/dl LAB Glucose, Serum 84 70 - 110 [facility] mg/dl LAB Albumin/Globulin 1.4 [facility] N Ratio LAB Specimen Anatomical Collection Method Collection Time Receive d Time (Source) Location / / Volume Laterality 04/20/1999 10:38 04/20/1999 EST 10:55 EST Skyla Armendariz ANP CHEMISTRY & BLOOD GAS ORDERA BLES Performing Organization Address City/State/ZIP Code Phon e Number [facility] [address] [place] [address] SERVICES [facility] [address] [place] [address] CHOLESTEROL (04/20/1999 10:38 EST) athologist Signature Cholesterol 211 mg/dl [facility] Comment: Desirable:<200 Borderline:200-239 High Risk:>tw=552 Specimen Anatomical Collection Method Collection Time Receive d Time (Source) Location / / Volume Laterality 04/20/1999 10:38 04/20/1999 EST 10:55 EST Skyla Armendariz ANP CHEMISTRY & BLOOD GAS ORDERA BLES Performing Organization Address City/[facility]/ZIP Code Phon e Number [facility] [address] [place] [address] SERVICES [facility] [address] [place] [address] HEMAGRAM (04/20/1999 10:38 EST) athologist Signature WBC 6.18 4.0 - 12.4 [facility] K/cmm LAB RBC 4.16 3.86 - 5.04 [facility] M/cmm LAB Hemoglobin 12.9 11.6 - 15.2 [facility] gm/dl LAB HCT 37.2 34.9 - 44.4 [facility] % LAB MCV 89 81 - 98 fl [facility] LAB MCH 31.0 26.7 - 33.3 [facility] pg LAB MCHC 34.7 32.1 - 35.9 [facility] gm/dl LAB PLT 194 141 - 320 [facility] K/cmm LAB RDW-CV 12.2 11.7 - 14.6 [facility] % LAB Specimen Anatomical Collection Method Collection Time Receive d Time (Source) Location / / Volume Laterality 04/20/1999 10:38 04/20/1999 EST 10:55 EST Skyla Will Armendariz ANP HEMATOLOGY & PF4 ORDERABLES Performing Organization Address City/State/ZIP Code Phon e Number [facility] [address] [place] [address] SERVICES [facility] [address] [place] [address] ALT (04/20/1999 10:38 EST) P athologist Signature ALT 21 15 - 75 U/L [facility] Specimen Anatomical Collection Method Collection Time Receive d Time (Source) Location / / Volume Laterality 04/20/1999 10:38 04/20/1999 EST 10:55 EST Skyla Armendariz ANP CHEMISTRY & BLOOD GAS ORDERA BLES Performing Organization Address City/[facility]/ZIP Code Phon e Number [facility] [address] [place] [address] SERVICES [facility] [address] [place] [address] documented in this encounter Visit Diagnoses Not on filedocumented in this encounter Care Teams Real Time Analyst Relationship Specialty Start Date End Date Darrius Apodaca MD PCP - General 10/06/09 10/18/17 1 [facility] [address] [place] [phone] Unknown, MD Katt PCP - General 10/19/17 documented as of this encounter
--- OUTSIDE RECORDS SUMMARY | 2022-04-30 00:50 | XMS_ITS | Encounter Summary ---
:1975 Author Organization [facility] Address [address] [place] [address] Care Team Providers Name Role Phone Unavailable Primary Care Provider Unavailable Encounter Details Date Type Department Care Team Description 02/15/2003 Hospital Encounter [facility] - Sara Maynard NP Other [address] [place] [address] [place], [place] [address] [phone] Social History Tobacco Use Types Packs/Day Years Used Date Smoking Tobacco: Never Assessed Sex Assigned at Date Recorded Not on file documented as of this encounter Discharge Disposition Disposition Code Departure Means Destination Auto Discharge documented in this encounter Plan of Treatment Not on filedocumented as of this encounter Procedures Procedure Name Priority Date/Time Associated Comments Diagnosis FINGER 2 OR MORE VIEWS Routine 07/29/2003 10:06 R esults for this EST procedure are i n the results section. CYTOPATHOLOGY Routine 02/15/2003 0:00 Results for this EDT procedure are i n the results section. documented in this encounter Results FINGER 2 OR MORE VIEWS (07/29/2003 10:06 EST) Anatomical Region Laterality Modality Other Specimen (Source) Anatomical Collection Method Collection Time Re ceived Time Location / / Volume Laterality 07/29/2003 10:06 EST Narrative 02/07/2009 10:38 EDT BRUISE AND FRACTURE TO NAIL AT NAILBED CRUCH TIP LEFT LITTLE FINGER C AR DOOR THIS [facility]/O FRACTURE OF LEFT MARILIA LE FINGER LEFT FINGER 2 OR MORE VIEWS 07/29/03 100 5 CLINICAL HISTORY: Crushed finger in car door. Rule out fra cture. Three views were obtained. The bones and soft tissues are within no rmal limits. No fracture is identified. /jv Procedure Note Sohan Dawson MD - 02/07/2009For matting of this note might be different from the original. BRUISE AND FRACTURE TO NAIL AT NAILBED CRUCH TIP LEFT LITTLE FINGER C AR DOOR THIS [facility]/O FRACTURE OF LEFT MARILIA LE FINGER LEFT FINGER 2 OR MORE VIEWS 07/29/03 100 5 CLINICAL HISTORY: Crushed finger in car door. Rule out fra cture. Three views were obtained. The bones and soft tissues are within no rmal limits. No fracture is identified. /jv Brina Beasley MD IMG DIAGNOSTIC IMAGING ORDER KATHARINE CYTOPATHOLOGY (02/15/2003 0:00 EDT) Component Value Ref Test Analysis Performed At [facility] Range Method Time Signature Pathology CYTOPATHOLOGY REPORT [facility] Report: [facility] Reports generated via electronic interface contain original data; however they are lacking the format of the original report. Caution should be taken when reading/interpreting unformatte d reports. Name: ? JASMYN SMITH ? Accession #: ? [id number] : ? 1975 (Age: 27) ??F ?Collect Date: ? 02/15/2003 Location: ? [facility] ? Receive Date: ? 02/19/2003 Provider: ?SARA MAYNARD EXTENSION WORK INSTRUCTOR Copy to: ? Specimen/Source: ?ThinPrep Pap Test, Cervix/Endoce rvix Last Menstrual Period: ? 01/26/03 Hormonal/Contraceptive Status: ? 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 Cervical biopsy Cryotherapy ? SPECIMEN ADEQUACY ? Satisfactory for Evaluation - transformation zone component present GENERAL CATEGORIZATION ? Negative for Intraepithelial Lesion or Malignancy ? Document reviewed and electronically signed by: ? Carmen Ortiz SCT(ASCP) ? Report Date: ??02/20/2003 18:17 End of Report Specimen (Source) Anatomical Location Collection Method / Collectio n Time Received Time / Laterality Volume 02/15/2003 02/19/2003 Sara Maynard NP PATHOLOGY ORDERABLES Performing Organization Address City/State/ZIP Code Phon e Number [facility] [address] [place] [address] SERVICES [facility] [address] [place] [address] documented in this encounter Visit Diagnoses Not on filedocumented in this encounter
--- OUTSIDE RECORDS SUMMARY | 2022-04-30 00:50 | XMS_ITS | Encounter Summary ---
:1975 Author Organization [facility] Address [address] [place] [address] Care Team Providers Name Role Phone Elaine Apodaca MD Primary Care Provider Encounter Details Date Type Department Care Team Description 06/22/2005 Results Only [facility] - Marce Maynard NP Maple conversion [address] [place] [address] [place] [address] [phone] Social History Tobacco Use Types Packs/Day Years Used Date Smoking Tobacco: Never Assessed Sex Assigned at Date Recorded Not on file documented as of this encounter Plan of Treatment Not on filedocumented as of this encounter Procedures Procedure Name Priority Date/Time Associated Diagnosis Comme [facility] CYTOPATHOLOGY Routine 06/22/2005 0:00 EST Results for this procedure are i n the results section . documented in this encounter Results CYTOPATHOLOGY (06/22/2005 0:00 EST) Component Value Ref Test Analysis Performed At [facility] Pathology CYTOPATHOLOGY REPORT [facility] Report: [facility] Reports generated via electronic interface contain original data; however they are lacking the format of the original report. Caution should be taken when reading/interpreting unformatte d reports. Name: ? JASMYN SMITH ? Accession #: ? [id number] : ? 1975 (Age: 29) ??F ?Collect Date: ? 06/22/2005 Location: ? [facility] ? Receive Date: ? 06/23/2005 Provider: ?SARA MAYNARD NP Copy to: ?ELAINE APODACA MD ? Specimen/Source: ? ThinPrep Pap Test, Cervix/Endocervix, processed on Telera ThinPrep Imaging System, with manual evaluation Last Menstrual Period: ? 06/16/05 Hormonal/Contraceptive Status: ? Orthotricyclen: LO Treatment History: ? Cryotherapy ? SPECIMEN ADEQUACY ? Satisfactory for Evaluation - transformation zone component present GENERAL CATEGORIZATION ? Negative for Intraepithelial Lesion or Malignancy ? Document reviewed and electronically signed by: ? TANO Perez(ASCP) ? Report Date: ??06/25/2005 09:09 End of Report Specimen (Source) Anatomical Location Collection Method / Collectio n Time Received Time / Laterality Volume 06/22/2005 06/23/2005 Sara Maynard NP PATHOLOGY ORDERABLES Performing Organization Address City/State/ZIP Code Phon e Number [facility] [address] [place] [address] SERVICES [facility] [address] [place] [address] documented in this encounter Visit Diagnoses Not on filedocumented in this encounter Care Teams Grain Elevator Agent Relationship Specialty Start Date End Date Elaine Apodaca MD PCP - General 10/06/09 10/18/17 1 [facility] Level [address] [place] [phone] documented as of this encounter
--- OUTSIDE RECORDS SUMMARY | 2022-04-30 00:50 | XMS_ITS | Encounter Summary ---
:[address] [facility] Address [address] [place] [address] Care Team Providers Name Role Phone Unavailable Primary Care Provider Unavailable Encounter Details Date Type Department Care Team Description 10/22/1999 Hospital Encounter [facility] - Skyla Armendariz, [facility] ANP [address] [place] [address] [facility] [address] [place] [address] (Wo rk) Social History Tobacco Use Types Packs/Day Years Used Date Smoking Tobacco: Never Assessed Sex Assigned at Date Recorded Not on file documented as of this encounter Discharge Disposition Disposition Code Departure Means Destination Auto Discharge documented in this encounter Plan of Treatment Not on filedocumented as of this encounter Procedures Procedure Name Priority Date/Time Associated Comments Diagnosis COMPLETE BLOOD COUNT Routine 10/22/1999 13:21 Res ults for this EDT procedure are i n the results section. QUANT BETA HCG, Routine 10/22/1999 13:21 Results for this EDT procedure are i n the results section. TRIGLYCERIDE Routine 10/22/1999 13:21 Results for this EDT procedure are i n the results section. CHOLESTEROL Routine 10/22/1999 13:21 Results for this EDT procedure are i n the results section. COMPREHENSIVE Routine 10/22/1999 13:21 Results fo r this METABOLIC PANEL (CMP) EDT proced ure are in the results section. documented in this encounter Results (ABNORMAL) TRIGLYCERIDE (10/22/1999 13:21 EDT) P athologist Signature Triglycerides 179 (H) 35 - 160 [facility] mg/dl LAB Specimen Anatomical Collection Method Collection Time Receive d Time (Source) Location / / Volume Laterality 10/22/1999 13:21 10/22/1999 EDT 13:22 EDT Skyla Armendariz ANP CHEMISTRY & BLOOD GAS ORDERA BLES Performing Organization Address City/State/ZIP Code Phon e Number [facility] [address] [place] [address] SERVICES [facility] [address] [place] [address] HCG (10/22/1999 13:21 EDT) P athologist Signature HCG <4 mIU/ml [facility] Comment: <4 = Negative 4-10 = Borderline, recommend repeat. Specimen Anatomical Collection Method Collection Time Receive d Time (Source) Location / / Volume Laterality 10/22/1999 13:21 10/22/1999 EDT 13:22 EDT Skyla Armendariz ANP CHEMISTRY & BLOOD GAS ORDERA BLES Performing Organization Address City/[facility]/ZIP [facility] Phon e Number [facility] [address] [place] [address] SERVICES [facility] [address] [place] [address] (ABNORMAL) COMPREHENSIVE METABOLIC PANEL (10/22/1999 13:21 EDT) P athologist Signature Potassium 4.3 3.5 - 5.0 [facility] mEq/L LAB Sodium 143 136 - 145 [facility] mEq/L LAB Chloride 103 96 - 110 [facility] mEq/L LAB CO2 26 24 - 30 [facility] mEq/L LAB Total Alkaline 64 38 - 126 [facility] Phosphatase U/L LAB Bilirubin, Total 0.6 0.2 - 1.3 [facility] N mg/dl LAB AST 23 8 - 50 U/L [facility] ALT 15 15 - 75 [facility] U/L LAB Albumin 4.2 3.0 - 5.5 [facility] g/dl LAB Total Protein 7.5 6.0 - 8.5 [facility] g/dl LAB Creatinine 0.8 0.7 - 1.5 [facility] mg/dl LAB BUN 8 (L) 10 - 26 [facility] mg/dl LAB Calcium 9.9 8.5 - 10.5 [facility] mg/dl LAB Calculated 10.1 8.5 - 10.5 [facility] Calcium mg/dl LAB Glucose, Serum 75 70 - 110 [facility] mg/dl LAB Albumin/Globulin 1.3 [facility] [address] N Ratio LAB Specimen Anatomical Collection Method Collection Time Receive d Time (Source) Location / / Volume Laterality 10/22/1999 13:21 10/22/1999 EDT 13:22 EDT Skyla Armendariz ANP CHEMISTRY & BLOOD GAS ORDERA BLES Performing Organization Address City/[facility]/ZIP Code Phon e Number [facility] [address] [place] [address] SERVICES [facility] [address] [place] [address] CHOLESTEROL (10/22/1999 13:21 EDT) athologist Signature Cholesterol 201 mg/dl [facility] Comment: Desirable:<200 Borderline:200-239 High Risk:>um=366 Specimen Anatomical Collection Method Collection Time Receive d Time (Source) Location / / Volume Laterality 10/22/1999 13:21 10/22/1999 EDT 13:22 EDT Skyla Armendariz ANP CHEMISTRY & BLOOD GAS ORDERA BLES Performing Organization Address City/[facility]/ZIP Code Phon e Number [facility] [address] [place] [address] SERVICES [facility] [address] [place] [address] HEMAGRAM (10/22/1999 13:21 EDT) P athologist Signature WBC 7.18 4.0 - 12.4 [facility] K/cmm LAB RBC 4.37 3.86 - 5.04 [facility] M/cmm LAB Hemoglobin 12.8 11.6 - 15.2 [facility] gm/dl LAB HCT 38.3 34.9 - 44.4 [facility] % LAB MCV 88 81 - 98 fl [facility] MCH 29.4 26.7 - 33.3 [facility] pg LAB MCHC 33.5 32.1 - 35.9 [facility] gm/dl LAB PLT 174 141 - 320 [facility] K/cmm LAB RDW-CV 12.2 11.7 - 14.6 [facility] % LAB Specimen Anatomical Collection Method Collection Time Receive d Time (Source) Location / / Volume Laterality 10/22/1999 13:21 10/22/1999 EDT 13:22 EDT Skyla Armendariz ANP HEMATOLOGY & PF4 ORDERABLES Performing Organization Address City/State/ZIP Code Phon e Number [facility] [address] [place] [address] SERVICES [facility] [address] [place] [phone] documented in this encounter Visit Diagnoses Not on filedocumented in this encounter
--- OUTSIDE RECORDS SUMMARY | 2022-04-30 00:50 | XMS_ITS | Encounter Summary ---
:1975 Author Organization [facility] Address [address] [place] [address] Care Team Providers Name Role Phone Darrius Apodaca MD Primary Care Provider Encounter Details Date Type Department Care Team Description 06/04/1999 Results Only [facility] - Andrzej Dukes, CLINICAL DATA ASSOCIATE conversion [address] [place] [address] [place] [address] [phone] Social History Tobacco Use Types Packs/Day Years Used Date Smoking Tobacco: Never Assessed Sex Assigned at Date Recorded Not on file documented as of this encounter Plan of Treatment Not on filedocumented as of this encounter Procedures Procedure Name Priority Date/Time Associated Diagnosis Comme [facility] CYTOPATHOLOGY Routine 06/04/1999 9:12 EST Results for this procedure are i n the results section . documented in this encounter Results CYTOPATHOLOGY (06/04/1999 9:12 EST) Component Value Ref Test Analysis Performed At [facility] Pathology CYTOPATHOLOGY REPORT [facility] Report: [facility] Reports generated via electronic interface contain original data; however they are lacking the format of the original report. Caution should be taken when reading/interpreting unformatte d reports. Name: ? JASMYN SMITH ? Accession #: ? [id number] : ? 1975 (Age: 23) ??F ?Collect Date: ? 06/04/1999 Location: ?Receive Date: ? 0 06/04/1999 Provider: ?PAT SHRUTHI CLINICAL DATA ASSOCIATE Copy to: ?PAT ALVARENGA CLINICAL DATA ASSOCIATE ? Specimen/Source: ?Pap Smear (One Slide) Last Menstrual Period: ? GYNECOLOGIC ??CYTOPATHOLOGY ??RE PORT Name: PUDVAH,JASMYN ? [facility] RN: [phone] : 1975 ?? 23Y F ?Client I D: ?? SS#: [id number] ? [facility] n #: [id number] Clinician: ANDRZEJ ALVARENGA NP ?? Location: [facility] ??Copy to: ?? Specimen: ?Pap Smear (One Slide) ? Source: Cervix/Endocervix ?Collected: 06/01/99 ? Received: 06/04/1999 ?LMP: 05/12/99 ? Hormone Therapy: Yes ? : No ? Radiation Therapy: No ?? Post : No ?Chemotherapy: No ?IUD: No ? Prev Abnormal Pap: No ?? Clinical Hx: ?(Blank gregorio indicate information not provided on req uisition) SPECIMEN ADEQUACY: ? Satisfactory For Evaluation ?? GENERAL CATEGORIZATION: ? WITHIN NORMAL LIMITS ? Reviewed And Electronically Signed By: ? Jennifer Welch, CT(ASCP) ? Report Date: ?? 0 06/04/1999 [employer] Archived Tests - Final Diagnosis Text Field: Clinical History : ? Document reviewed and electronically signed by: ? Conversion ? Report Date: ??06/04/1999 00:00 End of Report Specimen Anatomical Collection Method Collection Time Receive d Time (Source) Location / / Volume Laterality 06/04/1999 9:12 06/04/1999 9 :13 EST EST Andrzej Alvarenga NP PATHOLOGY ORDERABLES Performing Organization Address City/State/ZIP Code Phon e Number [facility] [address] [place] [address] SERVICES [facility] [address] [place] [address] documented in this encounter Visit Diagnoses Not on filedocumented in this encounter Care Teams Maintenance Of Way Clerk Relationship Specialty Start Date End Date Darrius Apodaca MD PCP - General 10/06/09 10/18/17 1 [facility] [address] [place] [address] documented as of this encounter
--- OUTSIDE RECORDS SUMMARY | 2022-04-30 00:50 | XMS_ITS | Encounter Summary ---
:1975 Author Organization [facility] Address [address] [place] [address] Care Team Providers Name Role Phone Unavailable Primary Care Provider Unavailable Encounter Details Date Type Department Care Team Description 04/02/2004 Hospital Encounter [facility] - Corazon Duran NP Other [address] [facility] [address] [place], [place] [address] [place] [id number] [phone] Social History Tobacco Use Types Packs/Day Years [...]
--- OUTSIDE RECORDS SUMMARY | 2022-04-30 00:50 | XMS_ITS | Encounter Summary ---
:1975 Author Organization [facility] Address [address] [place] [address] Care Team Providers Name Role Phone Unavailable Primary Care Provider Unavailable Encounter Details Date Type Department Care Team Description 07/29/2003 Hospital Encounter [facility]- Kristal Beasley [facility] [address] [place] [address] Social History Tobacco Use Types Packs/Day Years [...]
--- OUTSIDE RECORDS SUMMARY | 2022-04-30 00:50 | XMS_ITS | Encounter Summary ---
:1975 Author Organization [facility] Address [address] [place] [address] Care Team Providers Name Role Phone Unavailable Primary Care Provider Unavailable Encounter Details Date Type Department Care Team Description 06/22/2005 Hospital Encounter [facility] - Corazon Duran NP Other [address] [facility] [address] [place], [place] [address] [place] [id number] [phone] Social History Tobacco Use Types Packs/Day Years [...]
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
--- OUTSIDE RECORDS SUMMARY | 2022-04-30 00:50 | XMS_ITS | Encounter Summary ---
:1975 Author Organization [facility] Address [address] [place] [address] Care Team Providers Name Role Phone Darrius Apodaca MD Primary Care Provider Encounter Details Date Type Department Care Team Description 02/15/2003 Results Only [facility] - Marce Duran NP Maple conversion [address] [place] [address] [place], [place] [address] [phone] Social History Tobacco Use Types Packs/Day Years Used Date Smoking Tobacco: Never Assessed Sex Assigned at Date Recorded Not on file documented as of this encounter Plan of Treatment Not on filedocumented as of this encounter Procedures Procedure Name Priority Date/Time Associated Comments Diagnosis N. GONORRHOEAE Routine 02/15/2003 12:47 Results f or this AMPLIFIED PROBE EDT procedure ar e in the results section. ZZCHLAMYDIA Routine 02/15/2003 12:47 Results for this TRACHOMATIS AMPLIFIED EDT proced ure are in PROBE the results section. documented in this encounter Results N. GONORRHOEAE AMPLIFIED PROBE (02/15/2003 12:47 EDT) Component Value Ref Test Analysis Performed At [facility] Range Method Time Signature Result No Neisseria [facility] gonorrhoeae DNA [facility] detected by cook barbecue mediated amplification. Report Status Final [facility] [id number] [facility] Specimen Cervix [facility] Description [facility] Specimen Anatomical Collection Method Collection Time Receive d Time (Source) Location / / Volume Laterality 02/15/2003 12:47 02/18/2003 EDT 12:47 EDT Corazon Duran NP MICROBIOLOGY - GENERAL ORDER KATHARINE Performing Organization Address City/State/ZIP Code Phon e Number [facility] [address] [place] [address] SERVICES [facility] [address] [place] [address] CHLAMYDIA TRACHOMATIS AMPLIFIED PROBE (02/15/2003 12:47 EDT) Component Value Ref Test Analysis Performed At [facility] Range Method Time Signature Specimen Cervix [facility] Description [facility] Result No Chlamydia [facility] trachomatis DNA [facility] detected by cook barbecue mediated amplification. Report Status Final [facility] [id number] [facility] Specimen Anatomical Collection Method Collection Time Receive d Time (Source) Location / / Volume Laterality 02/15/2003 12:47 02/18/2003 EDT 12:47 EDT Corazon Duran NP MICROBIOLOGY - GENERAL ORDER KATHARINE Performing Organization Address City/State/ZIP Code Phon e Number [facility] [address] [place] [address] SERVICES [facility] [address] [place] [address] documented in this encounter Visit Diagnoses Not on filedocumented in this encounter Care Teams Migration Specialist Relationship Specialty Start Date End Date Darrius Apodaca MD PCP - General 10/06/09 10/18/17 1 [facility] Level 1 [place] [address] documented as of this encounter
--- NOTE | 2022-04-30 09:50 | DI.MAMMO_ITS ---
Exam(s) MAMMO SCREEN CALL BACK UNI EXAM: MAMMO SCREEN CALL BACK UNI CLINICAL HISTORY: ASYMMETRIC BREAST TISSUE LEFT BREAST TECHNIQUE: Spot compression views with tomographic imaging were performed. COMPARISON: 2019 and 20 April 2022 FINDINGS: No suspicious masses or suspicious microcalcifications are seen. No persistent abnormality is seen on the additional views performed. The findings are consistent wit h overlying fibroglandular tissue. There has been no significant change from prior exams. IMPRESSION: BI-RADS Category 1, Negative Yearly screening mammography is recommended. Breast Density - Category B, scattered fibroglandular densities.
== END ==
PROVIDERS: PCP Family Medicine; Visit Provider Family Medicine
DX: Z12.31 Encounter for screening mammogram for malignant neoplasm of breast (principal)
CPT/HCPCS: 77063; 77067

== ENCOUNTER 2023-08-19 07:09 | Day surgery (SDC) | payer BC, SELFPAY ==
--- NOTE | 2023-08-18 12:36 | ROE_ITS ---
Date of service: 08/19/23 Time of Service: 09:29 Operative Note Operative Note DATE OF PROCEDURE: 08/19/23 PRE-OP DIAGNOSIS: Second-degree family member with colorectal cancer greater than 60 POST-OP DIAGNOSIS: other (External hemorrhoids and few diverticula) SURGEON: Rosa M Briscoe ANESTHESIA TYPE: General:No Airway Refer to Anesthesia Record ESTIMATED BLOOD LOSS: 0 PATHOLOGY: none sent COMPLICATIONS: None Patient was transported to: same day Patient's condition: stable Procedure Description: After informed consent was obtained the patient was taken to the procedure room and placed in a left decubitous position. Monitors were applied and a time out was done. The patients name, date of , procedure, allergies to medications and metal in their body was reviewed. The patient was then sedated. Once sedated and comfortable a rectal exam was done. External exam: Small external hemorrhoid. Internal exam revealed a normal sphincter tone and no palpable masses. The scope was then introduced and retrofelexed. No internal hemorrhoids were identified. The scope was then advanced to the cecum without difficulty. The TI and appendiceal orifice were identified. The scope was then slowly retracted over minutes back into the rectum. There are no polyps or AVMs visualized today. There are a few small scattered diverticula confined to the sigmoid colon: No signs of active bleeding or infection the scope was removed and the patient was woken up and taken back to Same day surgery in stable condition. The patient tolerated the procedure well and there were no immediate comp lications. Follow up: The patient should follow up in 10 years unless they develop changes in bowel habits or other new gastrointestinal complaints.
--- NOTE | 2023-08-18 12:41 | PDOC.DSDIS_ITS ---
Date of service: 08/19/23 Time of Service: 09:31 Discharge Plan Disposition Patient Disposition: Home Condition: Good Discharge Details Reason For Visit: colon scope Attending Provider: Rosa M Briscoe Primary Care Provider: Lynsey Perez Home Meds and New Rx's Prescriptions: Continued Mirena 20 mcg/24 hours (5 yrs) 52 mg intrauterine device 1 device intrauterine ONCE Rx Instructions: as a single dose Discontinued bisacodyl [Dulcolax (bisacodyl)] 5 mg tablet,delayed release (DR/EC) 5 mg PO ONCE Qty: 4 0RF Rx Instructions: Take per colonoscopy instructions provided by ordering providers office polyethylene glycol 3350 17 gram/dose powder 17 g PO ONCE Qty: 238 0RF Rx Instructions: Take per colonoscopy instructions provided by ordering providers office Discharge Instructions Additional Instructions: DSU Colonoscopy Post- Op Instructions Instructions for Everyone who is given Anesthesia: For your safety, please do the following for the next twenty-four (24) hours: *Do Not operate a motor vehicle (car, truck, motorcycle, etc.) *Do Not drink alcoholic beverages or use any recreational drugs for the first 24 hours or while taking pain medications. The medications in your body may have a reaction that can be dangerous. *Do Not make any important decisions or sign any important papers. Findings: External hemorrhoids Minor diverticula-make sure you are moving your bowels on a regular basis and not straining to go to the bathroom. If you are find you are having some irregularities were constipation, then we recommend you start a fiber supplement such as Metamucil Follow up: Repeat colonoscopy in 10 years [place]. Of course, you should continue to have a yearly physical exam including a rectal exam. If you should ever notice any pain or difficulty having a bowel movement, blood in the stool, unexplained weight loss, or change in your bowel habits, please contact your health provider. 1. No lifting over 20 pounds or strenuous activity for the first 24 hours after your procedure. After 24 hours there are no restrictions on your activity but you may feel fatigued for a few days. 2. After you arrive home you may have a light meal and return to your normal diet as you can tolerate it without feeling sick to your stomach. 3. You may have a bloated, gaseous feeling in your belly (abdomen) after a colonoscopy. Passing gas and belching will help. Walking or lying down on your left side with your knees flexed may relieve the discomfort. Call the office at [phone] (Office) or [phone] (Hospital) right away if you notice any of the following: a.Vomiting of blood or ?coffee ground stools?. b.Rectal bleeding 1Tbsp, blood clots or continuous bleeding. c.Severe belly (abdominal) pain. d.A hard distended belly (abdomen) and an inability to pass gas. 4. Please don?t expect to have a normal BM (bowel movement) for 2-3 days after your procedure. 5. If there are questions regarding the findings of your procedure, please contact your doctor 6. If you are unable to contact your doctor with a problem, contact the hospital at [phone]. 7. Continue all your regular medications unless directed otherwise. I understand the above instructions and have no questions. Signature of Patient or Adult Escort Name of Responsible Adult Escort Signature of Nurse Date/Time Activity:: see above Diet:: see above Discharge Orders Discharge Orders: Discharge Order (Routine); Ordered 08/19/23 Ordered By: Rosa M Briscoe DS: Diagnosis Discharge Diagnosis (1) Family history of malignant neoplasm of colon in relative diagnosed when older than 50 years of age: Status: Acute Asessment and Plan: The patient is seen and examined after their colonoscopy.? The patient has been able to pass gas.? They are not having abdominal pain.? They have been able to tolerate liquids and a snack.? They do not have any nausea or vomiting.? They are not having any chest pain or shortness of breath.??? They are not having any rectal bleeding. Their vital signs have been stable-see nursing notes. We discussed findings during their colonoscopy, and any biopsies that were done/polyps that were removed. The patient will be sent a letter with any biopsy results, and when to repeat the colonoscopy.-see discharge instructions. Patient was given explicit instructions to follow-up regarding colonoscopy-refer to discharge instructions.? We reviewed resumption of medications. Patient verbalized understanding and discharged in stable and satisfactory condition- See nursing notes. (2) External hemorrhoids without complication: Status: Acute (3) Diverticula of colon: Status: Acute
[2023-08-19 07:20] VITALS: BP 151/94; PULSE 89; RESP 16; TEMP 36.6; O2SAT 100
[2023-08-19] MEDS: Lactated Ringers 1,000 ML 80 ML IV (07:37)
--- NOTE | 2023-08-19 07:53 | W.ANESPRE ---
General Info Date of Service Date Performed: 08/19/23 Height: 5 ft 7 in Weight: 106.3 kg Body Mass Index (BMI): 36.7 Surgical Procedure: Operation Date: 08/19/23 08:20 Proposed Procedure Side Surgeon jennie Briscoe, Meds Allergies and Home Medications Allergies Allergy/AdvReac Type Severity Reaction Status Date / Time No Known Allergies Allergy Verified 08/19/23 07:16 Home Medication Medication Instructions Recorded levonorgestrel 21 mcg/24 hours (8 1 device intrauterine ONCE 02/20/20 yrs) 52 mg intrauterine device (Mirena) Current Visit Medications: Current Medications Generic Name Dose Route Start Last Admin Trade Name Freq PRN Reason Stop Dose Admin Hyoscyamine Sulfate 0.125 mg 08/19/23 00:35 Hyoscyamine 0.125 Mg Sl/Oral/Chew SL 09/18/23 00:34 DIRECTED PRN Ringer's Solution 1,000 mls @ 80 mls/hr 08/19/23 06:00 08/19/23 07:37 IV 09/17/23 23:59 80 mls/hr INFUSION TIFFANIE Administration IV Miscellaneous Supplies 1 each 08/19/23 06:00 Iv Access IV 09/17/23 23:59 DIRECTED TIFFANIE Ondansetron HCl 4 mg 08/19/23 00:35 Ondansetron 4 Mg/2 Ml Vial IVP 09/18/23 00:34 Q4H PRN PRN Nausea / Vomiting Sodium Chloride 0 ml 08/19/23 06:00 Normal Saline Flush 10 Ml Syr IV 09/17/23 23:59 PRN PRN Sodium Chloride 0 ml 08/19/23 06:00 Normal Saline 10 Ml Vial IJ 09/17/23 23:59 DIRECTED PRN Sterile Water 0 ml 08/19/23 06:00 Water,Injection,Sterile 10 Ml Vial IJ 09/17/23 23:59 DIRECTED PRN PFSH Active Problems Active Problems: Problem Status Onset Code Family history of malignant neoplasm of colon in relative diagnosed when older than 50 years of age Z80.0 IUD surveillance 01/02/20 Z30.431 Fatigue R53.83 Medical History Medical History Stenosing tenosynovitis of thumb 04/22/15 Surgical History Surgical History H/O section 05/30/14 section (08/28/14) [facility] Tobacco Smoking/Tobacco Use Status: Never Passive smoking exposure: No Second hand exposure: No Alcohol Alcohol Intake: current Alcohol intake frequency: a few times a month Substance Use Substance use: Never Substance use type: does not use Prental History History 1 Para 1 Hx # Term Pregnancies Multiple births Hx # Pregnancies Ectopic pregnancies AB induced Hx Number of Living Children AB spontaneous Vital Signs and Lab Results Vital Signs Most Recent Vital Signs in EMR: Most Recent Vital Signs Temp Pulse Resp BP Pulse Ox 36.6 C 89 16 151/94 H 100 08/19/23 07:20 08/19/23 07:20 08/19/23 07:20 08/19/23 07:20 08/19/23 07:20 Point of Care Results Point of Care Results: POC- Test(urine) Negative 08/19/23 07:39 Lab Results Blood Type / Crossmatch: No Data to Display Complete Blood Count: No Data to Display Complete Metabolic Panel: No Data to Display Liver Function Panel: No Data to Display Coagulation Panel: No Data to Display Cardiac Panel: No Data to Display Arterial Blood Gas: No Data to Display Venous Blood Gas: No Data to Display Pancreas Panel: No Data to Display Thyroid Panel: No Data to Display Infectious Disease: No Data to Display Blood Cultures: No Data to Display Toxicology Panel: No Data to Display Panel: No Data to Display Anesthesia Assessment and Plan Anesthesia History Personal History: No History of Anesthesia Complications Family History: No Family History of Anesthesia Complications Exercise Tolerance Exercise Tolerance: Metabolic Equivalents>4 Pertinent Negatives Pertinent Negatives: No Symptoms of GERD, No Major Cardiovascular Symptoms or Complaints, No Major Pulmonary Symptoms or Complaints and No History of CVA/TIA Cardiac & Pulmonary Exam Cardiac Exam: Normal S1/S2 Heart Sounds Pulmonary Exam: Clear Bilateral Breath Sounds Implantable Cardiac Device Does patient have a Pacemaker or an ICD?: No Airway Exam Known Difficult Airway: No Mallampati Class: 1 Mouth Opening: Normal (> 3cm) Thyromental Distance: Greater than 3 cm Neck Range of Motion: Full ROM Neck Circumference: Normal Teeth Condition: Normal Dentition ASA Classification ASA Score: ASA 2 Emergency Case?: No NPO Status NPO Status: NPO Clears >2 hours, Solids >8 hours Status Status: Negative HCG Anesthesia Plan Resuscitation Status: Full Code Anesthesia Technique: General Anesthesia Airway Planned: Natural Airway Monitors Used: Standard Monitors
[2023-08-19 08:14] VITALS: BMI 36.7
[2023-08-19 08:43] VITALS: BP 114/75; PULSE 86; RESP 16; TEMP 36.4; O2SAT 97
--- NOTE | 2023-08-19 09:00 | W.ANESPOSTOP ---
Postoperative Evaluation Date, Time and Location Date Performed: 08/19/23 Time Performed: 09:00 Patient Location: Day Surgery Unit Vital Signs Most Recent Imported Vital Signs: Most Recent Vital Signs Temp Pulse Resp BP Pulse Ox 36.4 C L 86 16 114/75 97 08/19/23 08:43 08/19/23 08:43 08/19/23 08:43 08/19/23 08:43 08/19/23 08:43 Pain Score Most Recent Pain Score: Most Recent Pain Score Pain Level 0 08/19/23 08:43 Assessment Mental Status: Awake (Alert & Oriented to Patient Baseline) Airway and Respiratory Function: Patent airway with normal (patient baseline) respiratory exam Cardiovascular Function: Hemodynamically Stable Hydration Status: Adequately Hydrated Nausea & Vomiting: No Nausea or Vomiting Pain: Pt. Denies Any Pain Peripheral Nerve Block: Patient did not receive a nerve block
[2023-08-19 09:12] VITALS: BP 125/71; PULSE 80; RESP 16; TEMP 36.4; O2SAT 100
--- NOTE | 2023-08-19 22:00 | COLE_ITS ---
Date of service: 08/19/23 Time of Service: 09:29 Colonoscopy Report Date of procedure: 08/19/23 Pre-op diagnosis general: 2nd degree family memeber w/ CRC, > age 60 Post-op diagnosis procedure note: other (External hemorrhoids and few diverticula) Surgeon: Rosa M Briscoe Anesthesia Type: General:No Airway Estimated blood loss (mL): 0 Pathology: none sent Complications: None Disposition: same day Prep: Miralax/Dulcolax Retraction Time: 8 Procedure Description: After informed consent was obtained the patient was taken to the procedure room and placed in a left decubitous position. Monitors were applied and a time out was done. The patients name, date of , procedure, allergies to medications and metal in their body was reviewed. The patient was then sedated. Once sedated and comfortable a rectal exam was done. External exam: Small external hemorrhoid. Internal exam revealed a normal sphincter tone and no palpable masses. The scope was then introduced and retrofelexed. No internal hemorrhoids were identified. The scope was then advanced to the cecum without difficulty. The TI and appendiceal orifice were identified. The scope was then slowly retracted over minutes back into the rectum. There are no polyps or AVMs visualized today. There are a few small scattered diverticula confined to the sigmoid colon: No signs of active bleeding or infection the scope was removed and the patient was woken up and taken back to Same day surgery in stable condition. The patient tolerated the procedure well and there were no immediate complications. Follow up: The patient should follow up in 10 years unless they develop changes in bowel habits or other new gastrointestinal complaints. [place] Bowel Prep [place] Bowel Prep Right Colon: 3 Left Colon: 3 Transverse Colon: 3 Total Score: 9
== END 2023-08-19 09:54 | disposition home or self-care (01) ==
PROVIDERS: PCP Nurse Practitioner Family; Visit Provider Surgery
PROC: 0DJD8ZZ Inspection of Lower Intestinal Tract, Via Natural or Artificial Opening Endoscopic (ICD-10-PCS; CPT 45378; principal; 2023-08-19 08:15)
DX: Z12.11 Encounter for screening for malignant neoplasm of colon (principal); Z80.0 Family history of malignant neoplasm of digestive organs; K57.30 Diverticulosis of large intestine without perforation or abscess without bleeding; K64.4 Residual hemorrhoidal skin tags
CPT/HCPCS: 45378; 81025; J2001; J2405; J2704

== ENCOUNTER → 2023-08-23 01:16 | Outpatient (CLI) | payer BC, SELFPAY ==
--- NOTE | 2023-08-23 12:00 | DI.MAMMO_ITS ---
Exam(s) MAMMO SCREENING EXAM: MAMMO SCREENING CLINICAL HISTORY: screening TECHNIQUE: Bilateral full field digital CC and MLO mammographic images were obtained with 3D tomosyn thesis and utilizing computer aided detection (CAD). COMPARISON: Available for comparison. FINDINGS: Masses/Architectural Distortion: There is new asymmetric density in the central right breast on the c raniocaudad view 4 cm from the nipple. Microcalcifications: No suspicious pleomorphic-type are seen. Skin Thickening/Nipple Retraction: None. IMPRESSION: 1. New asymmetric density in the central right breast on the craniocaudad view. 2. Spot compression views requested for further evaluation. Ultrasound may be indicated at that time . BI-RADS Category 0 - Assessment Incomplete: Need additional imaging evaluation Breast Density - Category B - Scattered areas of fibroglandular density Breast density category C or D implies that the patient has dense breast tissue. Dense breast tissue is very common and is not abnormal but dense breast tissue can make it harder to find cancer on a ma mmogram. Also, dense breast tissue may increase their breast cancer risk. This information about the result of the mammogram report was provided to the patient to raise their awareness. Use this report when you speak with the patient about their risks for breast cancer, which includes their family hist ory. At that time, you may recommend for more screening tests (Ultrasound or MRI) as they might be us eful based on their risk. A negative radiographic report should not delay biopsy if a dominant or clinically suspicious mass is present. Up to ten percent of cancers are not identified on mammography. A negative report may reinforce clinical impression. Adenosis and dense breasts may obscure an underlying neoplasm. False positive reports average 6 to 10%. Patient will receive a letter notifying them of these results.
== END ==
PROVIDERS: PCP Nurse Practitioner Family; Visit Provider Nurse Practitioner Women's Health
DX: Z12.31 Encounter for screening mammogram for malignant neoplasm of breast (principal)
CPT/HCPCS: 77063; 77067

== ENCOUNTER 2023-08-25 05:10 | Outpatient (CLI) | payer BC, SELFPAY ==
[2023-08-25 07:26] LABS: HCT 42.5 % (36.0-46.0); HGB 14.3 g/dL (11.2-15.7); MCH 29.7 pg (27.0-33.0); MCHC 33.6 % (32.0-36.0); MCV 88 fL (80-95); MPV 10.7 fL (8.0-11.0); Platelet Count 216 10^3/uL (130-400); RBC 4.81 10^6/uL (3.93-5.22); RDW 12.4 % (11.7-14.6); RDW-SD 40.4 fL
[2023-08-25 08:16] LABS: BUN 12 mg/dL (7-18); CREATININE 0.9 mg/dL (0.55-1.02); Calcium 8.9 mg/dL (8.5-10.1); Calculated LDL 124 mg/dL (<100); Chloride 109 mmol/L (98-107); Cholesterol 198 mg/dL (<200); Estimated GFR 79.85 (mL/min/1.73m2); Glucose 85 mg/dL (74-106); HDL Cholesterol 48 mg/dL (40-60); Potassium 3.6 mmol/L (3.5-5.1); Sodium 143 mmol/L (136-145); TSH (W/Ref FT4) 2.82 uIU/mL (0.36-3.74); Triglyceride 131 mg/dL (<150)
[2023-08-25 08:19] LABS: Hemoglobin A1C 5.3 % (<5.7)
== END 2023-08-25 05:11 | disposition home or self-care (01) ==
LOC: LBO 05:10
PROVIDERS: PCP Nurse Practitioner Family; Visit Provider Nurse Practitioner Family
DX: Z00.00 Encounter for general adult medical examination without abnormal findings (principal)
CPT/HCPCS: 36415; 80048; 80061; 85027; 83036; 84443

== ENCOUNTER → 2023-08-30 02:22 | Outpatient (CLI) | payer BC, SELFPAY ==
--- NOTE | 2023-08-30 | DI.MAMMO_ITS ---
Exam(s) MG MAMMO SCREEN CALL BACK UNI US BREAST RT COMPLETE EXAM: MG MAMMO SCREEN CALL BACK UNI-RIGHT AND COMPLETE RIGHT BREAST ULTRASOUND CLINICAL HISTORY: R92.8 New asymmetric density in central right breast. TECHNIQUE: Unilateral spot mammographic images obtained with 3D tomosynthesisand utilizing computer aided detection (CAD). . Complete RIGHT breast Ultrasound was also performed, including all 4 quadrants, the retroareolar kathy on, and the ipsilateral axilla. COMPARISON: Prior mammograms were reviewed. This additional imaging was performed due to findings described on the recent screening mammogram of 08/23/2023. FINDINGS: DIAGNOSTIC MAMMOGRAM: Additional mammographic views performed todaydoes not completely dissipate this finding. We proceede d with ultrasound COMPLETE RIGHT BREAST ULTRASOUND: Ultrasound performed today reveals what appears to be 3 adjacent microcysts at the 6 o'clock position , corresponding to the finding on the mammogram. All 3 measure 3 mm size. Two of these are simple m icrocyst. The other is probably a hemorrhagic microcyst. Another finding at 12 o'clock position has more the appearance of asymmetric fibroglandular tissue th an an actual concerning nodule Scanning of the ipsilateral axilla reveals no significant adenopathy. IMPRESSION: 1. Benign-appearing right breast findings, as described above Appropriate follow-up as discussed by myself with patient today is repeat right breast mammogram and ultrasound in 6 months. The patient was informed of these findings and recommendations by myself prior to leaving the departm ent today. BI-RADS Category 3 - 6 month - Probably Benign Finding: Recommend follow-up mammography in 6 months Breast Density - Category B - Scattered areas of fibroglandular density Breast density Category C or D implies that the patient has dense breast tissue. Dense breast tissue can make it harder to find cancer on a mammogram. Dense breast tissue is also associated with an incr eased risk of breast cancer. This information about the result of the mammogram report was provided to the patient to raise their awareness. Use this report when you speak with the patient about their risks for breast cancer, which includes their family history. At that time, you may recommend additional screening tests (Ultrasoun d or MRI) as these tests may add significant information. A negative radiographic report should not delay biopsy if a dominant or clinically suspicious mass is present. Up to ten percent of cancers are not identified on mammography. A negative report may reinforce clinical impression. Adenosis and dense breasts may obscure an underlying neoplasm. False positive reports average 6 to 10%. Patient will receive a letter notifying them of these results.
== END ==
PROVIDERS: PCP Nurse Practitioner Family; Visit Provider Nurse Practitioner Women's Health
DX: R92.8 Other abnormal and inconclusive findings on diagnostic imaging of breast (principal)
CPT/HCPCS: 76642; 77063; 77067

== ENCOUNTER 2024-03-06 01:02 | Outpatient (CLI) | payer BC, SELFPAY ==
--- NOTE | 2024-03-06 09:57 | DI.MAMMO_ITS ---
Exam(s) MG MAMMO DIAGNOSTIC UNI US BREAST RT COMPLETE EXAM: MG MAMMO DIAGNOSTIC UNI-RIGHT AND COMPLETE RIGHT BREAST ULTRASOUND CLINICAL HISTORY: 6 month f/u,rt asymmetric density, abnl mammo, r92.8. TECHNIQUE: Unilateral BREAST CC AND MLO mammographic images were obtained with 3D tomosynthesis tech [facility] and utilizing computer aided detection (CAD). COMPLETE RIGHT BREAST ULTRASOUND was performed including all 4 quadrants as well as the right axilla. COMPARISON: Prior mammograms were reviewed, the most recent being July 2023. Ultrasound August 1023 also reviewed FINDINGS: DIAGNOSTIC RIGHT BREAST MAMMOGRAM: The previously described finding has slightly decreased in size. There are no new spiculated masses nor malignant-appearing microcalcification groups No new architectural distortion or skin thickening-retraction COMPLETE RIGHT BREAST ULTRASOUND: Previously described finding at 12 o'clock position has benign appearance, most probably just asymmet robert tissue. With respect to the previously described 3 adjacent microcysts at the 6 o'clock position, there again noted but have slightly decreased in size with average size now 2 millimeters and below. Most importantly, there are no solid lesions in all 4 quadrants of the right breast. Scanning of the right axilla is negative for adenopathy IMPRESSION: Benign mammographic and ultrasound findings. No evidence of malignancy Appropriate follow-up is to keep this patient on her yearly mammogram schedule, implying that next bi lateral mammogram would be in July or August 2024, with earlier imaging if a self detected breast zack nge is noted.. The patient was informed of the findings and follow-up recommendations by myself prior to leaving the department today. BI-RADS Category 2 - Benign Findings Breast Density - Category B - Scattered areas of fibroglandular density Breast density Category C or D implies that the patient has dense breast tissue. Dense breast tissue can make it harder to find cancer on a mammogram. Dense breast tissue is also associated with an incr eased risk of breast cancer. This information about the result of the mammogram report was provided to the patient to raise their awareness. Use this report when you speak with the patient about their risks for breast cancer, which includes their family history. At that time, you may recommend additional screening tests (Ultrasoun d or MRI) as these tests may add significant information. A negative radiographic report should not delay biopsy if a dominant or clinically suspicious mass is present. Up to ten percent of cancers are not identified on mammography. A negative report may reinforce clinical impression. Adenosis and dense breasts may obscure an underlying neoplasm. False positive reports average 6 to 10%. Patient will receive a letter notifying them of these results.
== END 2024-03-06 01:22 ==
LOC: DI 01:02
PROVIDERS: PCP Nurse Practitioner Family; Visit Provider Nurse Practitioner Women's Health
DX: R92.8 Other abnormal and inconclusive findings on diagnostic imaging of breast (principal); Z12.31 Encounter for screening mammogram for malignant neoplasm of breast
CPT/HCPCS: 76642; 77061; 77065; G0279

== ENCOUNTER 2025-03-13 00:07 | Outpatient (CLI) | payer BC, SELFPAY ==
--- NOTE | 2025-03-13 09:07 | DI.MAMMO_ITS ---
Exam(s) MAMMO SCREENING EXAM: MAMMO SCREENING CLINICAL HISTORY: screening TECHNIQUE: Bilateral full field digital CC and MLO mammographic images were obtained with 3D tomosynthesis and utilizing computer aided detection (CAD). COMPARISON: Comparison is made with prior examinations. FINDINGS: Masses/Architectural Distortion: No suspicious masses or areas of architectural distortion are present. Microcalcifications: No suspicious pleomorphic-type are seen. Skin Thickening/Nipple Retraction: None. IMPRESSION: 1. No significant interval change with no specific features of malignancy noted. 2. Unless there is more urgent need, screening mammography is recommended, as per [employer] guidelines. BI-RADS Category 1 - Negative Breast Density - Category B - There are scattered areas of fibroglandular density. Breast density Category C or D implies that the patient has dense breast tissue. Dense breast tissue can make it harder to find cancer on a mammogram. Dense breast tissue is also associated with an increased risk of breast cancer. This information about the result of the mammogram report was provided to the patient to raise their awareness. Use this report when you speak with the patient about their risks for breast cancer, which includes their family history. At that time, you may recommend additional screening tests (Ultrasound or MRI) as these tests may add significant information. A negative radiographic report should not delay biopsy if a dominant or clinically suspicious mass is present. Up to ten percent of cancers are not identified on mammography. A negative report may reinforce clinical impression. Adenosis and dense breasts may obscure an underlying neoplasm. False positive reports average 6 to 10%. Patient will receive a letter notifying them of these results.
== END 2025-03-13 00:27 ==
LOC: DI 00:07
PROVIDERS: PCP Nurse Practitioner Family; Visit Provider Nurse Practitioner Women's Health
DX: Z12.31 Encounter for screening mammogram for malignant neoplasm of breast (principal)
CPT/HCPCS: 77063; 77067